=== PATIENT | female | born 1975 | race Caucasian/White ===

== ENCOUNTER → 2023-10-16 07:00 | Outpatient (REF) | payer OTHER, SELFPAY | LOC: RAD 07:00 | PROVIDERS: ATTENDING PHYSICIAN Nurse Practitioner | DX: R10.9 Unspecified abdominal pain (principal) | CPT/HCPCS: 74176 ==

== ENCOUNTER 2023-10-26 12:35 | Emergency (ER) | payer OTHER, SELFPAY ==
[2023-10-26 12:44] VITALS: BP 174/103
[2023-10-26 13:05] LABS: Urine Albumin Negative (Neg - Trace); Urine Bilirubin Negative (Negative); Urine Character Clear (Clear); Urine Color Yellow; Urine Glucose Negative (Negative); Urine Ketone Negative (Negative); Urine Leukocyte Negative (Negative); Urine Nitrite Negative (Negative); Urine Occult Blood 1+ (Negative); Urine Specific Gravity 1.015 (<1.030); Urine Urobilinogen Negative (Neg - 1+)
[2023-10-26 13:17] LABS: % Basophils 0.7 % (0-2); % Eosinophils 0.9 % (0-6); % Immature Granulocytes 0.5 % (0-0.5); % Lymphocytes 20.5 % (20.5-51.1); % Monocytes 8.7 % (1.7-9.3); % Neutrophils 68.7 % (42.2-75.2); ALT (SGPT) 14 U/L (0-35); AST (SGOT) 19 U/L (14-36); Absolute Eosinophils 0.1 10^3/uL (0-0.7); Absolute Lymphocytes 1.1 10^3/uL (1.2-3.4); Absolute Monocytes 0.5 10^3/uL (0.1-0.6); Absolute Neutrophils 3.8 10^3/uL (1.4-6.5); Albumin 4.3 g/dl (3.5-5.0); Alkaline Phosphatase 105 U/L (38-126); Blood Urea Nitrogen 8 mg/dl (7-17); Calcium 9.5 mg/dl (8.4-10.2); Carbon Dioxide 26 mmol/L (22-30); Chloride 104 mmol/L (98-107); Glucose 103 mg/dl (70-99); Hemoglobin 12.8 g/dL (12.0-16.0); Mean Corp Hgb Conc. 32.8 g/dL (33.0-37.0); Mean Corpuscular Hgb 26.8 pg (27.0-31.0); Mean Corpuscular Volume 81.8 fL (81.0-99.0); Mean Platelet Volume 8.4 fL (7.4-10.4); Nucleated Red Blood Cells % 0 %; Platelet Count 310 10^3/uL (130-400); Potassium 3.8 mmol/L (3.5-5.1); Red Blood Cell Count 4.77 10^6/uL (4.20-5.40); Red Cell Dist. Width 13.7 % (11.5-14.5); Sodium 138 mmol/L (135-145); Total Bilirubin 0.2 mg/dl (0.2-1.3); Total Protein 7.1 g/dl (6.3-8.2); White Blood Cell Count 5.5 10^3/uL (4.8-10.8); eGFR > 60.00
[2023-10-26 13:19] VITALS: BMI 32.7
--- NOTE | 2023-10-26 13:29 | EDRN ---
Gerson GIVENS currently at the pts bedside speaking to the pt and the pts
[2023-10-26 13:44] LABS: Urine Bacteria Few (Negative); Urine White Cell 0-2 /HPF (0-5)
[2023-10-26 13:48] LABS: HCG, Serum Qualitative Screen Negative
--- NOTE | 2023-10-26 14:12 | ED.GENMED ---
History of Present Illness
General
Chief Complaint: Flank Pain
Source: patient
Time Seen by Provider: 10/26/23 13:22
Travel History
Have you had any contact with someone who has COVID-19?: No
Do you have any symptoms of coronavirus? Fever > 100 degrees, chills, cough, shortness of breath, sore throat, loss of taste or smell, muscle aches, or headache?: No
History of Present Illness
History of Present Illness:
48-year-old female with past medical history of asthma and migraines presenting emergency department for evaluation of left flank pain radiating to her right groin that she notes has caused some discomfort intermittently over the last year or so but
normally waxes and wanes and goes away but states that over the last few days/weeks the pain radiates more into the flank area which was atypical. Patient has been seen by her primary care physician and had urinalysis done which had showed
microscopic hematuria and proteinuria in the past as well as a CT of the abdomen pelvis that was done a few days ago here at this facility which showed a 2.3 cm left ovarian cyst but no other abnormal pathology. Patient was told she would likely
need an ultrasound of the pelvis which she has yet to schedule. She denies any fevers, chills, rigors, nausea, vomiting. Patient did state that today at work she did get dizzy/lightheaded twice lasting for about 5 minutes or so which is ultimately
why she decided come to the ER she was not sure if the symptoms were related. Presently denies any lightheadedness or dizziness.
Past History
Past History
ED Past Medical History: Asthma and Other (migraines)
ED Past Surgical History: Gynecological
Social History
Tobacco: Non-smoker
Alcohol: None
Drug: None
Personal:
Living: with family
Employment: Employed
Review of Systems
Review of Systems
All Other Systems: ROS reviewed and negative except as documented in HPI and ROS
Phy Exam
Physical Exam
Physical Exam:
GENERAL: Alert , in no apparent distress
EYE: clear conjunctiva b/l
HEAD: NCAT
ENT: o/p clr, mmm.
CARDIAC: Regular rate and rhythm .
LUNGS: Clear breath sounds bilaterally, no acute respiratory distress, no wheezes/rales/rhonchi
ABDOMEN: Soft, without focal tenderness, no r/g, no cvat
NEUROLOGICAL: Alert and oriented
SKIN: Warm and dry, skin intact.
MUSCULOSKELETAL: No edema, well perfused.
PSYCH: Normal and appropriate interaction.
Scores
Heart Failure Risk
Heart Failure Risk Score: Not Applicable
Heart Score for Chest Pain Patients
STEMI patient?: Not applicable
Withdrawal Assessment of Alcohol
Withdrawal Assessment Completed?: Not applicable
Course
Orders/Labs/Results
Orders:
Orders
10/26/23 12:51
Complete Blood Count/With Diff Urgent
Comprehensive Metabolic Panel Urgent
HCG, Serum Qualitative Screen Urgent
Comment: ADD ON
10/26/23 12:57
Urinalysis Reflex To Culture Urgent
Date Specimen was Collected: 10/26/23
Time Specimen was Collected: 12:46
Urine Microscopic Reflex Cult Urgent
10/26/23 13:23
Add On- LAB Urgent
Tests Added?: hcg qual
10/26/23 13:36
US Pelvis W Transvag Combined Urgent
Reason For Exam: left lower abd/flank pain, known cyst
Abnormal Lab Results
10/26/23 10/26/23
12:51 12:57
MCH 26.8 L pg
(27.0-31.0)
MCHC 32.8 L g/dL
(33.0-37.0)
Absolute Lymphs (auto) 1.1 L 10^3/uL
(1.2-3.4)
Glucose 103 H mg/dl
(70-99)
Ur Occult Blood Reflex 1+ A
(Negative)
Urine RBC 3-6 A /HPF
(0-2)
Urine Bacteria (Reflex) Few A
(Negative)
10/26/23 12:51
10/26/23 12:51
Vital Signs
Initial and Last Documented VS:
Initial Vital Signs
Temp Pulse Resp BP Pulse Ox
98.6 F 81 18 174/103 99
10/26/23 12:44 10/26/23 12:44 10/26/23 12:44 10/26/23 12:44 10/26/23 12:44
Last Documented Vital Signs
Temp Pulse Resp BP Pulse Ox
97.8 F 64 18 151/92 98
10/26/23 15:25 10/26/23 15:25 10/26/23 12:44 10/26/23 15:25 10/26/23 15:25
MDM/Problems Addressed
Differential Diagnosis Includes:
Ovarian cyst, less concern for ovarian torsion given size of known ovarian cyst, renal/ureteral colic initially considered however CT scan done on October 15 did not show any intrarenal stones on the left, muscular etiology, UTI/pyelonephritis
MDM/Problems Addressed:
48-year-old female present emergency department for evaluation of left-sided flank pain. This flank pain is ultimately been ongoing for around a year but symptoms have been waxing and waning during this time. Initial plan was to obtain a CT of the
abdomen pelvis however given recent scan done on October 15 I doubt this would reveal or yield any acute pathologies. Will instead obtain an ultrasound to better evaluate the ovarian cyst. Patient declining anything for pain. Reassessment following.
*Radiology
Radiology exam reviewed: radiology read reviewed
*Pulse Oximetry
Patient hypoxic: no
*Critical Care Note
Total Time (30-74mins, 75-104mins- exclusive of procedures): Not Applicable
Data Reviewed
Review of Other/Old Records Reveals: Radiology Studies
Patient Management
Escalation/DeEscalation of care consider admission/obs:
Ultrasound shows an uncomplicated left ovarian cyst measuring 2.2 cm. I do not have any concern for ovarian torsion. 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 She is aware of
return precautions but otherwise stable for discharge home.
ED Attending Note
-
Portions of this chart may have been created with voice recognition software.� Occasional wrong word or��sound alike� substitutions may have occurred due to the inherent limitations of voice recognition software.
Discharge Plan
Departure
Patient Disposition: Home (Routine Discharge)
Date of Disposition: 10/26/23
Time of Disposition: 15:07
Patient with high blood pressure during this ER visit?: No
Discharge Problem:
Ovarian cyst
Instructions: Ovarian Cyst (DC)
Prescriptions:
No Action
Emgality Syringe
1 dose IM MONTHLY
Referrals:
Teresa Birch MD [Family Provider] -
Interventions
Interventions:
*Risk Screen - Suicide Last Done: 10/26/23 12:44
*General Assessment Last Done: 10/26/23 12:44
*Neglect/Abuse Screening Last Done: 10/26/23 12:44
ED- Fall Risk Assessment Last Done: 10/26/23 13:19
*ED COVID-19 Vaccine History Last Done: 10/26/23 12:44
*Nursing Disposition Last Done: 10/26/23 15:25
GB-Azlrht-Myxxewoatf Assessment Last Done: 10/26/23 13:19
ED-Female Genitourinary Assessment Last Done: 10/26/23 13:19
Discharge Date and Time
Discharge Date/Time: 10/26/23 15:26
--- NOTE | 2023-10-26 14:51 | EDRN ---
this RN gave verbal report to results pending nurse Corine RAON, pt taken to results pending
[2023-10-26 14:58] VITALS: BP 151/92
[2023-10-26 15:25] VITALS: BP 151/92
== END 2023-10-26 15:26 | disposition home or self-care (01) ==
LOC: EMR 12:35
PROVIDERS: Emergency Medicine; EMERGENCY PHYSICIAN Emergency Medicine; FAMILY PHYSICIAN Family Medicine
DX: N83.202 Unspecified ovarian cyst, left side (principal); J45.909 Unspecified asthma, uncomplicated
CPT/HCPCS: 99284; 76830; 76856; 80053; 81003; 81015; 84703; 85025

== ENCOUNTER → 2023-12-08 14:13 | Outpatient (REF) | payer OTHER, SELFPAY ==
[2023-12-08 16:24] LABS: Urine Protein 7 mg/dl (0-12)
[2023-12-10 00:37] LABS: Complement C3 149 mg/dl (88-165)
[2023-12-10 22:02] LABS: ANA, IgG Reflex to HEp-2 None Detected (None Detected)
[2023-12-11 02:03] LABS: Myeloperoxidase Antibody 0 AU/mL (0-19); Serine Protease-3, IgG 3 AU/mL (0-19)
== END ==
LOC: REG 14:13
PROVIDERS: ATTENDING PHYSICIAN Internal Medicine; FAMILY PHYSICIAN Family Medicine
DX: R80.9 Proteinuria, unspecified (principal)
CPT/HCPCS: 36415; 82570; 83516; 84156; 86038; 86160

== ENCOUNTER → 2024-04-09 11:16 | Outpatient (REF) | payer OTHER, SELFPAY | LOC: WDC 11:16 | PROVIDERS: ATTENDING PHYSICIAN Nurse Practitioner | DX: Z12.31 Encounter for screening mammogram for malignant neoplasm of breast (principal) | CPT/HCPCS: 77063; 77067 ==

== ENCOUNTER → 2024-07-15 13:09 | Outpatient (REF) | payer OTHER, SELFPAY | LOC: WDC 13:09 | PROVIDERS: ATTENDING PHYSICIAN Nurse Practitioner | DX: R92.333 Mammographic heterogeneous density, bilateral breasts (principal) | CPT/HCPCS: 76641 ==

== ENCOUNTER → 2024-08-05 13:45 | Outpatient (REF) | payer OTHER, SELFPAY | LOC: HWRAD 13:45 | PROVIDERS: ATTENDING PHYSICIAN Nurse Practitioner | DX: N83.202 Unspecified ovarian cyst, left side (principal) | CPT/HCPCS: 76856 ==

== ENCOUNTER 2024-11-02 00:37 | Emergency (ER) | payer OTHER, SELFPAY ==
[2024-11-02] VITALS (9 sets, daily range): BP systolic 117–145; BP diastolic 73–88; PULSE 69–77; BMI 27.7
[2024-11-02 03:11] LABS: ALT (SGPT) 13 U/L (0-35); AST (SGOT) 19 U/L (14-36); Albumin 4.1 g/dl (3.5-5.0); Alkaline Phosphatase 71 U/L (38-126); Blood Urea Nitrogen 15 mg/dl (7-17); Calcium 9.1 mg/dl (8.4-10.2); Carbon Dioxide 27 mmol/L (22-30); Chloride 103 mmol/L (98-107); Estimated Creatinine Clearance 63 ml/min; Glucose 104 mg/dl (70-99); Potassium 3.7 mmol/L (3.5-5.1); Sodium 137 mmol/L (135-145); Total Bilirubin 0.4 mg/dl (0.2-1.3); Total Protein 6.5 g/dl (6.3-8.2); eGFR > 60.00
[2024-11-02 04:26] LABS: % Basophils 0.5 % (0-2); % Eosinophils 0.9 % (0-6); % Immature Granulocytes 0.3 % (0-0.5); % Lymphocytes 30.7 % (20.5-51.1); % Monocytes 9.4 % (1.7-9.3); % Neutrophils 58.2 % (42.2-75.2); Absolute Eosinophils 0.1 10^3/uL (0-0.7); Absolute Monocytes 0.6 10^3/uL (0.1-0.6); Absolute Neutrophils 3.9 10^3/uL (1.4-6.5); Hematocrit 38.9 % (37.0-47.0); Hemoglobin 13.1 g/dL (12.0-16.0); Mean Corp Hgb Conc. 33.7 g/dL (33.0-37.0); Mean Corpuscular Hgb 28.5 pg (27.0-31.0); Mean Corpuscular Volume 84.7 fL (81.0-99.0); Mean Platelet Volume 8.6 fL (7.4-10.4); Nucleated Red Blood Cells % 0 %; Platelet Count 253 10^3/uL (130-400); Red Blood Cell Count 4.59 10^6/uL (4.20-5.40); Red Cell Dist. Width 13.3 % (11.5-14.5); White Blood Cell Count 6.6 10^3/uL (4.8-10.8)
--- NOTE | 2024-11-02 04:33 | DOWNTIME ---
There was a [employer] Social Work Professor Downtime on 11/02/2024 from 0100 to 11/03/2023 at 0420 . Downtime documentation of patient's care, including medication administrations, has been reconciled in the electronic record per guidelines. Refer to the
patient's paper chart under the miscellaneous tab to see printed paper medication records and downtime forms.
[2024-11-02 04:47] LABS: COVID-19 Antigen Negative (Negative)
[2024-11-02 04:50] LABS: Lipase 268 U/L (23-300)
--- NOTE | 2024-11-02 16:36 | ED.GENMED ---
History of Present Illness
General
Chief Complaint: Headache
Source: patient
Exam Limitations: none
Time Seen by Provider: 11/02/24 04:32
Nursing documentation reviewed up to this point in time: agreed with
History of Present Illness
History of Present Illness:
Patient is a 39-year-old female with history migraines presented to the emergency department with headache which has mainly resolved by my evaluation. Patient states she woke up today with a dull headache which felt almost 'bandlike� across the top
of her head. Differnt distribution than her typical migraines although she states it was generally less severe. Headache persisted throughout the day -patient took 1 g of Tylenol just prior to bed around midnight. She states that when she lie
down she began having chills and states that her teeth were 'chattering'. Patient felt lightheaded, nauseous, and endorses some tunnel vision, although no double vision or blurry vision. She denies any syncopal event. She denies any preceding
chest pain, shortness of breath or any associated double vision, dizziness, ataxia, dysarthria.
Patient does however endorse constant ringing in her ears which started abruptly in April. She was seen by ENT in office who found no obvious cause.
Patient is scheduled to follow-up with her neurologist in November.
Past History
Past History
ED Past Medical History: Asthma and Other (migraines)
ED Past Surgical History: Gynecological
Social History
Tobacco: Non-smoker
Alcohol: None
Drug: None
Personal:
Living: with family
Employment: Employed
Review of Systems
Review of Systems
Allergies reviewed?: Yes
All Other Systems: ROS reviewed and negative except as documented in HPI and ROS
Phy Exam
Physical Exam
Physical Exam:
Vitals: Patient's vital signs are stable. Afebrile
General: Patient is well appearing, no acute distress
Skin: Warm and dry, no rashes or lesions
Head: Normocephalic, atraumatic. No temporal tenderness bilaterally
Eyes: Sclera nonicteric. Pupils equal round and reactive bilaterally. Visual haley intact. EOMs intact. No nystagmus.
Throat: Protecting airway
Neck: Normal ROM, no cervical spine tenderness, no meningismus
Cardiac: Regular rate and rhythm, no murmurs.
Pulm: Normal respiratory effort, no wheezes, rales, rhonchi heard on exam.
Abdomen: No abdominal tenderness.
Extremities: No evidence of cyanosis or edema. Strength 5/5 in upper and lower extremities
Neuro: AAOx3. CN II-XII grossly intact. Normal finger to nose. Fluid speech. No facial droop or asymmetry.
Psychiatric: Normal affect.
Course
Orders/Labs/Results
Orders:
Orders
11/02/24
Electrocardiogram (*1) Stat
Reason for Study: Chest Pain
CT Head W/o Iv Contrast Urgent
Reason For Exam: headache
11/02/24 00:55
Complete Blood Count/With Diff Urgent
Comprehensive Metabolic Panel Urgent
Lipase Urgent
Comment: ADD ON DURING DOWNTIME
11/02/24 02:39
COVID-19 Antigen Routine
Influenza A+B Rapid Molecular Routine
JULIANNA Source: [facility]
Specimen Description:
Abnormal Lab Results
11/02/24
00:55
Monocytes % 9.4 H %
(1.7-9.3)
Glucose 104 H mg/dl
(70-99)
11/02/24 00:55
11/02/24 00:55
Vital Signs
Initial and Last Documented VS:
Initial Vital Signs
Temp Pulse Resp BP Pulse Ox
97.9 F 88 20 145/88 100
11/02/24 00:39 11/02/24 00:39 11/02/24 00:39 11/02/24 00:39 11/02/24 00:39
Last Documented Vital Signs
Temp Pulse Resp BP Pulse Ox
97.9 F 80 18 125/83 99
11/02/24 00:39 11/02/24 05:21 11/02/24 05:21 11/02/24 05:21 11/02/24 05:21
MDM/Problems Addressed
Differential Diagnosis Includes:
Not limited to: tension headache, migraine headache, acoustic neuroma, mass, etc
MDM/Problems Addressed:
49 y.o F presenting with one day of headache associated with chills and lightheadedness. No fever, vision loss, neck pain or dizziness. Different quality of headache than typical migraines although less severe. Patient did take tylenol prior to
presenting to emergency department now with almost complete resolution of symptoms. Vitals and exam as above. Patient very well appearing in no apparent distress. Patient A&O x3 without focal neuro deficits. Cardio/pulmonary exam unremarkable.
Overall reassuring presentation given response to tylenol and the fact that she is neurologically intact. Symptoms consistent with viral illness or possibly tension headache. Much lower suspicion for central process - although given new onset
tinnitus about 6 months ago with abnormal headache tonight will check CT head. Labs initiated in triage and pending. Patient essentially asymptomatic denying and analgesia at this time.
Update: labs reviewed - no clinically significant abnormalities. EKG NSR without acute ischemic changes. Viral swabs negative. On reassessment patient sleeping comfortably in no distress. At this point case was signed out to attending physician
pending CT read. If CT negative- discussed with patient discharge home with return precautions and neurology appt as scheduled next month.
Chronic conditions affecting care:
Migraine
Acute Exacerbation and/or Progression of Chronic Illness:
N/A
*Radiology
Radiology exam reviewed: radiology read reviewed
*Pulse Oximetry
Patient hypoxic: no
*EKG
Interpreted by ED Provider?: Yes
EKG Intrepretation Date: 11/02/24
Interpretation: normal
Comparison EKG: no comparison EKG present
Heart Rate: 66
Rate: normal
Rhythm: sinus arrhythmia
[place]: normal axis
Interval: normal interval
QRS Pattern: normal QRS
Ischemia: no ischemia
*Terrazzo Worker Helper Interpretation
Rate: Terrazzo Worker Helper- N/A
*Critical Care Note
Total Time (30-74mins, 75-104mins- exclusive of procedures): Not Applicable
ED Attending Note
-
Portions of this chart may have been created with voice recognition software.� Occasional wrong word or��sound alike� substitutions may have occurred due to the inherent limitations of voice recognition software.
Discharge Plan
Departure
Patient Disposition: Home (Routine Discharge)
Patient with high blood pressure during this ER visit?: No
Discharge Problem:
Headache
Prescriptions:
No Action
Emgality Syringe
1 dose IM MONTHLY
Referrals:
Daphne Lindsay DO [Family Provider] -
Interventions
Interventions:
*Risk Screen - Suicide Last Done: 11/02/24 00:39
*General Assessment Last Done: 11/02/24 00:46
*Neglect/Abuse Screening Last Done: 11/02/24 00:39
*ED- Fall Risk Assessment Last Done: 11/02/24 00:46
*ED COVID-19 Vaccine History Last Done: 11/02/24 00:46
*Nursing Disposition Last Done: 11/02/24 05:22
ED- Neurological Assessment Last Done: 11/02/24 00:46
Discharge Date and Time
Discharge Date/Time: 11/02/24 05:23
Print Language: BENINESE
== END 2024-11-02 05:23 | disposition home or self-care (01) ==
LOC: EMR 00:37
PROVIDERS: EMERGENCY PHYSICIAN Student in an Organized Health Care Education/Training Program; FAMILY PHYSICIAN Family Medicine
DX: R51.9 Headache, unspecified (principal); J45.909 Unspecified asthma, uncomplicated
CPT/HCPCS: 99284; 70450; 80053; 83690; 85025; 87502; 87811; 93005

== ENCOUNTER → 2025-03-03 09:18 | Outpatient (REF) | payer OTHER, SELFPAY | LOC: WDC 09:18 | PROVIDERS: ATTENDING PHYSICIAN Family Medicine; REFERRING PHYSICIAN Nurse Practitioner | DX: N64.4 Mastodynia (principal) | CPT/HCPCS: 76642; 77062; 77066 ==